=== PATIENT | female | born 2000 | race Caucasian/White ===

== ENCOUNTER 2019-03-30 20:35 | Emergency (ER) | payer BC, OTHER ==
[2019-03-30] MEDS ORDERED: ACETAMINOPHEN 325 MG TABLET (FP) PO ONE (20:47)
--- NOTE | 2019-03-30 20:47 | PDOC ---
Rapid Medical Evaluation Medical Evaluation: Allergies Allergy/AdvReac Type Severity Reaction Status Date / Time Penicillins Allergy Verified 04/03/13 20:47 I have performed a brief in-person evaluation of this patient. The patient presents with a chief complaint of: sore throat x2 days along with fever, took Tylenol this AM; also with cough and body aches Pertinent physical exam findings: In NAD, minimal erythema to pharynx, no exudates noted I have ordered the following: Flu, rapid strep The patient will proceed to the ED for further evaluation. 03/30/19 20:46
[2019-03-30 20:49] VITALS: BP 112/76; PULSE 108; TEMP 100.3; BMI 24.5
--- NOTE | 2019-03-30 21:01 | PDOC ---
History of Present Illness - General Chief Complaint: Sore Throat Stated Complaint: THROAT/BODY/PAIN Time Seen by Provider: 03/30/19 20:45 - History of Present Illness Initial Comments: 03/30/19 21:00 18-year-old with sore throat and fever x2 days no comorbidities Past History - Past Medical History Allergies/Adverse Reactions: Allergies Allergy/AdvReac Type Severity Reaction Status Date / Time Penicillins Allergy Verified 03/30/19 20:49 Home Medications: Ambulatory Orders No Home Medications 04/03/13 COPD: No - Immunization History Immunization Up to Date: Yes - Psycho Social/Smoking Cessation Hx Smoking History: Never smoked Have you smoked in the past 12 months: No Information on smoking cessation initiated: No Hx Alcohol Use: No Drug/Substance Use Hx: No Substance Use Type: None Review of Systems - Review of Systems Constitutional: Yes: Fever HEENTM: Yes: Nose Congestion, Throat Pain *Physical Exam - Vital Signs Last Vital Signs Temp Pulse Resp BP Pulse Ox 100.3 F H 108 H 17 112/76 99 03/30/19 20:46 03/30/19 20:46 03/30/19 20:46 03/30/19 20:46 03/30/19 20:46 - Physical Exam 03/30/19 21:00 GENERAL: The patient is awake, alert, and fully oriented, in no acute distress. HEAD: Normal with no signs of trauma. EYES: sclera anicteric, conjunctiva clear. ENT: Ears normal tympanic membranes normal oropharynx clear uvula midline NECK: Normal range of motion LUNGS: Breath sounds equal, clear to auscultation bilaterally. No wheezes, and no crackles. HEART: S1 and S2 without murmur, rub or gallop. ABDOMEN: Soft, nontender, normoactive bowel sounds. No guarding, no rebound. No masses. EXTREMITIES: Normal range of motion, no edema. No clubbing or cyanosis. No cords, erythema, or tenderness. NEUROLOGICAL: Cranial nerves II through XII grossly intact. Normal speech, normal gait. PSYCH: Normal mood, normal affect. SKIN: Warm, Dry, normal turgor, no rashes or lesions noted. Medical Decision Making - Medical Decision Making 03/30/19 21:47 Negative viral and strep swab supportive care for viral upper respiratory infection follow-up with primary care physician Discharge - Discharge Information Problems reviewed: Yes Clinical Impression/Diagnosis: Viral URI with cough Condition: Stable Disposition: HOME - Admission No - Follow up/Referral - Patient Discharge Instructions Additional Instructions: Tylenol and Motrin for fevers and discomfort. Return to the emergency room for worsening symptoms and without fail follow-up with your primary care physician in 1 to 2 days for further evaluation and treatment options. Influenza and strep a swabs were negative today. - Post Discharge Activity
[2019-03-30] MEDS ORDERED: ACETAMINOPHEN 500 MG TABLET (FP) ONE (21:18)
== END 2019-03-30 21:55 | disposition home or self-care (01) ==
LOC: JERFT 20:35
DX: B97.89 Other viral agents as the cause of diseases classified elsewhere (principal); Z88.0 Allergy status to penicillin
CPT/HCPCS: 87070; 87804; 87880; 99281-25